=== PATIENT | male | born 2000 | race Two or more races ===

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

== ENCOUNTER 2022-01-26 17:35 | Emergency (ER) | payer OTHER ==
[2022-01-26 17:49] VITALS: BP 125/71; PULSE 72; RESP 18; TEMP 98.7; BMI 24.4
== END 2022-01-26 18:54 | disposition home or self-care (01) ==
LOC: FER 17:35
DX: R05.1 Acute cough (principal)
CPT/HCPCS: 0241U-QW; 71045-TC-FY; 99284-25

== ENCOUNTER 2023-08-17 02:20 | Emergency (ER) | payer SELFPAY ==
[2023-08-17 02:30] VITALS: BP 169/107; PULSE 76; RESP 18; TEMP 98; BMI 24.4
== END 2023-08-17 04:57 | disposition left against medical advice (07) ==
LOC: JER 02:20
DX: M25.562 Pain in left knee (principal); M79.602 Pain in left arm; V28.09XA Other motorcycle driver injured in noncollision transport accident in nontraffic accident, initial encounter; Y92.410 Unspecified street and highway as the place of occurrence of the external cause
CPT/HCPCS: 99281-25

== ENCOUNTER 2023-08-17 13:55 | Emergency (ER) | payer SELFPAY ==
[2023-08-17 14:02] VITALS: BP 143/93; PULSE 58; RESP 20; TEMP 98.2; BMI 24.4
[2023-08-17] MEDS ORDERED: BACITRACIN ZINC 15 GM TUBE TOPICAL OINTMENT TP ONE (14:33)
[2023-08-17] MEDS: IBUPROFEN 600 MG TABLET (FP) PO ONE (14:53)
[2023-08-17] MEDS ORDERED: IBUPROFEN 600 MG TABLET (FP) PO ONE (14:53)
== END 2023-08-17 15:09 | disposition home or self-care (01) ==
LOC: FER 13:55
DX: S80.212A Abrasion, left knee, initial encounter (principal); S80.811A Abrasion, right lower leg, initial encounter; S80.812A Abrasion, left lower leg, initial encounter; S40.811A Abrasion of right upper arm, initial encounter; S40.812A Abrasion of left upper arm, initial encounter; V29.99XA Rider (driver) (passenger) of other motorcycle injured in unspecified traffic accident, initial encounter; Y92.410 Unspecified street and highway as the place of occurrence of the external cause
CPT/HCPCS: 99283-25

== ENCOUNTER 2024-03-23 18:36 | Emergency (ER) | payer OTHER ==
[2024-03-23 18:45] VITALS: BP 115/73; PULSE 55; RESP 18; TEMP 98.6; BMI 25.0
== END 2024-03-23 19:28 | disposition home or self-care (01) ==
LOC: FER 18:36
DX: R05.9 Cough, unspecified (principal)
CPT/HCPCS: 99283-25

== ENCOUNTER 2024-08-25 18:09 | Emergency (ER) | payer OTHER ==
[2024-08-25 18:22] VITALS: BP 137/75; PULSE 71; RESP 20; TEMP 98.6; BMI 26.4
[2024-08-25 20:03] LABS: URINE APPEARANCE CLEAR; URINE BILIRUBIN NEGATIVE (NEGATIVE); URINE COLOR YELLOW; URINE GLUCOSE (UA) NEGATIVE (NEGATIVE); URINE KETONE TRACE (NEGATIVE); URINE LEUK ESTERASE NEGATIVE (NEGATIVE); URINE NITRITE NEGATIVE (NEGATIVE); URINE PROTEIN NEGATIVE (NEGATIVE)
== END 2024-08-25 20:41 | disposition home or self-care (01) ==
LOC: JERFT 18:09
DX: M54.50 Low back pain, unspecified (principal); X50.1XXA Overexertion from prolonged static or awkward postures, initial encounter; Y93.B9 Activity, other involving muscle strengthening exercises
CPT/HCPCS: 74176-TC; 81003; 87086; 99284-25